=== PATIENT | female | born 1990 | race Caucasian/White ===

== ENCOUNTER 2018-01-30 22:43 | Emergency (ER) | payer SELFPAY ==
[~2018-01-30] VITALS: Ht 172.7 cm; Wt 93.0 kg
--- NOTE | 2018-01-30 23:04 | NUR ---
DR. SLAUGHTER AT BEDSIDE FOR MSE.
[2018-01-30] MEDS ORDERED: PIPERACILLIN/TAZOBACTAM/D5W 50 ML IV ONE (23:15)
[2018-01-30] MEDS ORDERED: PIPERACILLIN SODIUM/TAZOBACTAM 3.375 G in IV DEXTROSE 5% 50 ML IV ONE (23:15)
--- NOTE | 2018-01-31 00:18 | NUR ---
Patient discharged to home in stable conditon. Written and verbal after care instructions given. Patient verbalizes understanding of instructions. PATIENT LEFT WITH STABLE GAIT.
[2018-01-31 00:21] VITALS: BP 105/57
== END 2018-01-31 00:21 | disposition home or self-care (01) ==
LOC: ER 22:45
DX: L03.113 Cellulitis of right upper limb (principal); I89.1 Lymphangitis
CPT/HCPCS: A4663; J2543